=== PATIENT | female | born 1960 | race Caucasian/White ===

== ENCOUNTER 2018-02-24 16:56 | Emergency (ER) | payer MEDICAID, OTHER ==
[2018-02-24 17:08] VITALS: BP 145/82; PULSE 63; RESP 19; TEMP 98.1; O2SAT 100
[2018-02-24] MEDS ORDERED: Naproxen 550 mg Tab PO STA (17:39)
--- NOTE | 2018-02-24 17:41 | C.PDOC ---
History Of Present Illness 57yo female with history of diabetes, hypertension, comes to ER with complaints of right posterior head pain, radiating down to her shoulder, right arm and right anterior chest wall. She states the pain is worse with movement. Patient has been taking 2 tabs of OTC Motrin with no relief of symptoms. Patient denies any weakness, numbness or tingling; also denies any trauma or injury to the site. She offers no additional medical complaints. Time Seen by Provider: 02/24/18 17:16 Chief Complaint (Nursing): Upper Extremity Problem/Injury History Per: Patient History/Exam Limitations: no limitations Onset/Duration Of Symptoms: Days Current Symptoms Are (Timing): Still Present Quality: "Pain" Additional History Per: Patient Past Medical History Reviewed: Historical Data, Nursing Documentation, Vital Signs Vital Signs: Last Vital Signs Temp 98.1 F 02/24/18 17:03 Pulse 63 02/24/18 17:03 Resp 19 02/24/18 17:03 BP 145/82 02/24/18 17:03 Pulse Ox 100 02/24/18 17:45 - Medical History PMH: Arthritis, Back Problems, Depression, Diabetes, HTN, Kidney Stones ( lithotripsy) Surgical History: No Surg Hx Family History: States: No Known Family Hx - Social History Hx Tobacco Use: No Hx Alcohol Use: No Hx Substance Use: No - Immunization History Hx Tetanus Toxoid Vaccination: No Hx Influenza Vaccination: No Hx Pneumococcal Vaccination: No Review Of Systems Cardiovascular: Positive for: Chest Pain (right anterior chest wall pain) Musculoskeletal: Positive for: Neck Pain (right neck), Shoulder Pain (right shoulder), Arm Pain (right arm) Neurological: Positive for: Other (right posterior head pain). Negative for: Weakness, Numbness Physical Exam - Physical Exam Appears: Non-toxic Skin: Warm, Dry Head: Atraumatic, Normacephalic, Tenderness (tenderness along right posterior scalp) Eye(s): bilateral: Normal Inspection Neck: Normal ROM, No Midline Cervical Tenderness, No Paracervical Tenderness, No Step Off Deformity, Supple Chest: Symmetrical, Tenderness (anterior right chest wall tenderness) Cardiovascular: Rhythm Regular Respiratory: Normal Breath Sounds Back: No Vertebral Tenderness, Other (tenderness to right trapezius ) Extremity: Normal ROM (normal ROM of right shoulder), Tenderness (tenderness to right shoulder), Capillary Refill (< 2 seconds), No Deformity, No Swelling Pulses: Left Radial: Normal, Right Radial: Normal Neurological/Psych: Oriented x3, Normal Motor, Normal Sensation Gait: Steady ED Course And Treatment O2 Sat by Pulse Oximetry: 100 (RA) Pulse Ox Interpretation: Normal Medical Decision Making Medical Decision Making: pt with rt shoulder pain radiating to necdk, post occiput, , right arm, d/c home with nsaid and muscle relaxant Disposition Counseled Patient/Family Regarding: Diagnosis, Need For Followup, Rx Given - Disposition Referrals: Bruce Story Jr., MD [Medical Doctor] - Disposition: HOME/ ROUTINE Disposition Time: 17:41 Condition: GOOD Additional Instructions: Por favor, siga con el Dr. Story. [place] naproxeno segn lo prescrito. [place] relajante muscular 3 veces al da si est en griffin casa; chris si est conduciendo o trabajando, entonces tmela solo a la hora de acostarse, ya que le da sueo. Regrese a la everton de emergencias para sntomas peor an. . Please follow up with Dr Story. Take naproxen as prescribed. Take muscle relaxant 3 times a day if at home; but if you are driving or working., then take only at bedtime, since it makes you sleepy. Return to ER for nay worse symptoms. . Prescriptions: Cyclobenzaprine [Cyclobenzaprine HCl] 10 mg PO Q8 #9 tab Naproxen 500 mg PO BID #20 tab Instructions: Cervical Muscle Strain (DC) Forms: [employer] (Sinhala), Work Excuse Print Language: VIET[place]ESE - Clinical Impression Clinical Impression: Cervical muscle strain, Trapezius muscle strain - PA / TELESCOPE OPERATOR / Resident Statement MD/DO has reviewed & agrees with the documentation as recorded. - Scribe Statement The provider has reviewed the documentation as recorded by the Scribe (Gregoria Yang) Provider Attestation: All medical record entries made by the Scribe were at my direction and personally dictated by me. I have reviewed the chart and agree that the record accurately reflects my personal performance of the history, physical exam, medical decision making, and the department course for this patient. I have also personally directed, reviewed, and agree with the discharge instructions and disposition.
[2018-02-24] MEDS ORDERED: Naproxen 550 mg Tab PO ONE ×2 (17:43→17:44)
== END 2018-02-24 17:59 | disposition home or self-care (01) ==
LOC: C.ER 16:56
DX: S16.1XXA Strain of muscle, fascia and tendon at neck level, initial encounter (principal); X58.XXXA Exposure to other specified factors, initial encounter